=== PATIENT | male | born 1990 ===

== ENCOUNTER 2024-09-14 09:55 | Day surgery (SDC) | payer OTHER ==
[2024-09-08 10:52] LABS: HEMATOCRIT 46.1 % (39.0-48.0); HEMOGLOBIN 15.8 g/dL (13-16.00); MEAN CELL VOLUME 91.2 fL (80.0-100.00); MEAN CORPUSCULAR HEMOGLOBIN 31.2 pg (27.00-32.0); MEAN CORPUSCULAR HGB CONC 34.2 g/dl (32.0-36.0); PLATELET COUNT 270 K/uL (150-450); RED BLOOD COUNT 5.05 M/uL (4.00-6.00); RED CELL DISTRIBUTION WIDTH 13.9 % (11.5-14.5)
[2024-09-08 11:17] LABS: PH,URINE 6.5 (5.0-8.0); URINE APPEARANCE Clear; URINE BILIRRUBIN Negative (NEGATIVE); URINE BLOOD Negative; URINE COLOR Yellow; URINE GLUCOSE Negative (NEGATIVE); URINE KETONE 15 (NEGATIVE); URINE LEUKOCYTE Negative; URINE NITRATE Negative; URINE PROTEIN Trace (NEGATIVE)
[2024-09-08 11:20] LABS: INR 1.12; PARTIAL THROMBOPLASTIN TIME 27.3 SECONDS (22.0-34.0); PROTHROMBIN TIME 12.1 SECONDS (9.0-11.5)
[2024-09-08 11:23] LABS: URINE EPITHELIAL CELLS 3.4 uL (0.0-38.8); URINE RBC 7.9 uL (0.0-20.8); URINE WBC 2.2 uL (0.0-23.2)
[2024-09-08 11:24] LABS: URINE BACTERIA 1.2 uL (0.0-1933); URINE CAST 0.58 uL (0.0-1.40)
[2024-09-08 11:28] LABS: CREATININE SERUM 0.91 mg/dL (0.70-1.30); GFR 95.95; POTASSIUM 4.51 mEq/L (3.5-5.1)
[~2024-09-14 09:55] MED LIST: KETO10TA2 PO; MIRALAX17 GM PO; TRAMADOL HCL50 MG PO; TYLENOL ARTHRI650 MG PO
[2024-09-14] MEDS ORDERED: CEFAZOLIN SODIUM 1,000 MG VIAL ONE (12:35)
[2024-09-14] MEDS ORDERED: BUPIVACAINE HCL/MPF 0.5% 30ML VIAL ONE (14:24)
[2024-09-14] MEDS ORDERED: KETOROLAC TROMETHAMINE 30 MG VIAL ONE (15:03)
[2024-09-14] MEDS ORDERED: SUGAMMADEX SODIUM 200 MG/2 ML VIAL IV ONE ×2 (15:03→15:30)
[2024-09-14] MEDS ORDERED: NEURONTIN300 MG PO (15:25)
[2024-09-14] MEDS ORDERED: KETOROLAC TROMETHAMINE 30 MG VIAL IV ONE (15:30)
[2024-09-14] MEDS ORDERED: BUPIVACAINE HCL 30 ML VIAL IJ ONE (15:30)
[2024-09-14] MEDS ORDERED: CEFAZOLIN SODIUM 1,000 MG VIAL IV ONE (15:30)
[2024-09-14] MEDS ORDERED: MORPHINE SULFATE 4 MG/ML VIAL IV ONE (16:45)
== END 2024-09-14 17:35 | disposition home or self-care (01) ==
LOC: CIR.AMB 09:55
PROVIDERS: ATTEND Surgery
DX: K42.0 Umbilical hernia with obstruction, without gangrene (principal)
CPT/HCPCS: 49594; C1781